=== PATIENT | male | born 1945 | race Caucasian/White ===

== ENCOUNTER 2018-10-07 12:19 | Inpatient (IN) ==
[2018-10-07] MEDS ORDERED: ASPIRIN 325 MG TABLET PO STA (12:56)
[2018-10-07] MEDS ORDERED: DILTIAZEM 50 MG/10 ML VIAL IV STA (12:56)
[2018-10-07] MEDS ORDERED: DILTIAZEM INJ 100 MG in SODIUM CHLORIDE 0.9% 100 ML IV SCH (13:00)
[2018-10-07 13:05] LABS: Basophils # 0.1 10*3/uL (0.0-0.2); Eosinophils # 0.5 10*3/uL (0.0-0.87); Eosinophils % 8.4 % (0.00-10.9); Hematocrit 42.4 VOL% (42.0-52.0); Hemoglobin 13.9 GM/DL (14.0-18.0); Immature Granulocytes % 0.3 %; Immature Granulocytes Absolute 0.02 #; Lymphocytes # 1.9 10*3/uL (1.4-4.0); Mean Corpuscular HGB Conc 32.8 GM/DL (32-36); Mean Corpuscular Hemoglobin 30 PG (27-34); Mean Corpuscular Volume 92.2 FL (87-102); Mean Platelet Volume 10.8 FL (9.6-12.0); Monocytes # 0.6 10*3/uL (0.11-0.8); Monocytes % 9.7 % (1.7-12.7); Neutrophils # 3.2 10*3/uL (1.4-7.4); Neutrophils % 50.6 % (38.7-73.9); Platelet Count 166 T/CUMM (130-400); Red Cell Distribution Width 12.2 % (9.3-17.3); White Blood Count 6.3 T/CUMM (4-12)
[2018-10-07] MEDS ORDERED: dilTIAZem Drip 125 MG/125 ML PREMIX IV ONE (13:13)
[2018-10-07] MEDS ORDERED: METOPROLOL TARTRATE 5 MG/5 ML VIAL IV STA (13:18)
[2018-10-07 13:20] LABS: PT Patient Result 10.3 SECS; Partial Thromboplastin Time 26.8 SECS (0-40)
[2018-10-07 13:28] LABS: Bilirubin,Total 0.4 MG/DL (0.2-1.0); Potassium 3.8 MMOL/L (3.5-5.1); Total Protein 6.9 G/DL (6.4-8.3)
[2018-10-07 14:32] LABS: Apearance,Urine CLEAR (Clear); Bilirubin,Urine Negative (Negative); Blood, Urine Negative (Negative); Glucose,Urine (UA) Negative (Negative); Ketones,Urine Negative (Negative); Nitrite,Urine Negative (Negative); Protein,Urine Negative; RBC,Urine <1 /HPF (0-4); Urine Color Straw (Yellow); Urine Specific Gravity 1.005 (1.001-1.035); Urine Urobilinogen < 2.0 EU/DL (0.2-1.0)
[2018-10-07 15:01] LABS: Barbiturates Screen,Urine Negative (Negative); Benzodiazepines Screen,Urine Negative (Negative); Cannabinoid Screen,Urine Negative (Negative); Opiate Screen,Urine Negative (Negative); Phencyclidine Screen,Urine Negative (Negative)
[2018-10-07] MEDS ORDERED: ACETAMINOPHEN 325 MG TABLET PO PRN (15:25)
[2018-10-07] MEDS ORDERED: MAGNESIUM SULF RIDER 2 GM in PREMIX 1 EACH IV PRN (15:25)
[2018-10-07] MEDS ORDERED: DOCUSATE SODIUM 100 MG CAPSULE PO PRN (15:25)
[2018-10-07] MEDS ORDERED: ZALEPLON 5 MG CAPSULE PO PRN (15:25)
[2018-10-07] MEDS ORDERED: ONDANSETRON 4 MG/2 ML VIAL IV PRN (15:25)
[2018-10-07] MEDS ORDERED: MAGNESIUM SULF RIDER 4 GM in PREMIX 1 EACH IV PRN (15:25)
[2018-10-07] MEDS ORDERED: ENOXAPARIN 40 MG/0.4 ML SYRINGE SUBCUT SCH (15:30)
[2018-10-07] MEDS ORDERED: dilTIAZem Drip 125 MG/125 ML PREMIX IV PRN (16:00)
[2018-10-08 05:47] LABS: Basophils # 0.1 10*3/uL (0.0-0.2); Basophils % 1.8 % (0.0-0.8); Eosinophils # 0.7 10*3/uL (0.0-0.87); Eosinophils % 12.1 % (0.00-10.9); Hematocrit 39.3 VOL% (42.0-52.0); Hemoglobin 13.2 GM/DL (14.0-18.0); Immature Granulocytes % 0.4 %; Immature Granulocytes Absolute 0.02 #; Lymphocytes # 1.2 10*3/uL (1.4-4.0); Mean Corpuscular HGB Conc 33.6 GM/DL (32-36); Mean Corpuscular Hemoglobin 31 PG (27-34); Mean Corpuscular Volume 92.3 FL (87-102); Mean Platelet Volume 10.7 FL (9.6-12.0); Monocytes # 0.6 10*3/uL (0.11-0.8); Monocytes % 10.1 % (1.7-12.7); Neutrophils % 54.6 % (38.7-73.9); Platelet Count 141 T/CUMM (130-400); Red Blood Count 4.26 MC/CUMM (3.8-5.5); Red Cell Distribution Width 12.2 % (9.3-17.3); White Blood Count 5.6 T/CUMM (4-12)
[2018-10-08 06:00] LABS: Calcium 8.7 MG/DL (8.5-10.1); Osmolality,Calculated 280.3 MOS/KG (273-304); Potassium 4.1 MMOL/L (3.5-5.1); Risk Ratio 3.81; VLDL CHOLESTEROL 30.8 MG/DL
[2018-10-08 06:16] LABS: Eosinophils 8 % (0-10); Lymphocytes 15 % (20-55); Platelet Estimate Adequate; Segmented Neutrophils 69 % (50-85); Total Cells Counted 100
[2018-10-08] MEDS: FERROUS SULFATE 325 MG TABLET PO SCH (08:45)
[2018-10-08] MEDS: LOSARTAN 25 MG TABLET PO SCH (08:45)
[2018-10-08] MEDS: APIXABAN 5 MG TABLET PO SCH ×2 (08:45→20:42)
[2018-10-08] MEDS: PANTOPRAZOLE 40 MG TABLET PO SCH (08:45)
[2018-10-08] MEDS: ASPIRIN EC 81 MG TABLET PO SCH (08:45)
[2018-10-08] MEDS: SOTALOL 80 MG TABLET PO SCH ×2 (08:45→20:42)
[2018-10-08] MEDS: ATORVASTATIN 10 MG TABLET PO SCH (08:46)
[2018-10-09 08:43] VITALS: BP 132/65
[2018-10-09] MEDS: FERROUS SULFATE 325 MG TABLET PO SCH (09:01)
[2018-10-09] MEDS: APIXABAN 5 MG TABLET PO SCH (09:01)
[2018-10-09] MEDS: ATORVASTATIN 10 MG TABLET PO SCH (09:02)
[2018-10-09] MEDS: ASPIRIN EC 81 MG TABLET PO SCH (09:02)
[2018-10-09] MEDS: PANTOPRAZOLE 40 MG TABLET PO SCH (09:02)
[2018-10-09] MEDS: LOSARTAN 25 MG TABLET PO SCH (09:02)
[2018-10-09] MEDS: SOTALOL 80 MG TABLET PO SCH (09:25)
== END 2018-10-09 10:42 | disposition home or self-care (01) | DRG 310 ==
LOC: N.ED 12:19 → N.EDINP 14:24 → N.2W 14:38 → N.TELEN 16:50
PROVIDERS: ADMIT Internal Medicine Interventional Cardiology; ATTEND Internal Medicine Interventional Cardiology